=== PATIENT | female | born 1970 | race Caucasian/White ===

== ENCOUNTER 2025-03-04 20:43 | Inpatient (IN) | payer MEDICAID ==
[~2025-03-04] VITALS: Ht 152.4 cm; Wt 59.0 kg
[2025-03-04 21:28] LABS: BASOPHILS % 0.3 % (0.0-2.0); EOSINOPHILS % 0.5 % (0.0-5.0); HEMATOCRIT. 41.4 % (36.0-48.0); HEMOGLOBIN. 13.4 g/dL (12.0-16.0); LYMPHOCYTES % 18.5 % (20.0-50.0); MEAN CORPUSCULAR HEMOGLOBIN 26.5 pg (28.0-32.0); MEAN CORPUSCULAR HGB CONC 32.5 g/dL (31.0-37.0); MEAN CORPUSCULAR VOLUME 81.6 fL (81.0-99.0); MEAN PLATELET VOLUME 8.3 fl (7.4-10.4); MONOCYTES % 4.6 % (2.0-8.0); NEUTROPHILS % 76.1 % (40.0-76.0); PLATELET 333 x1000/uL (130-400); RED BLOOD CELL COUNT 5.07 mill/uL (4.2-5.4); RED CELL DISTRIBUTION WIDTH 14.5 % (11.6-14.6); WHITE BLOOD COUNT 19.6 x1000/uL (4.5-11.0)
[2025-03-04 21:35] LABS: CHLORIDE 98 mEq/L (98-107); POTASSIUM 4.1 mEq/L (3.5-5.1); SODIUM 136 mEq/L (136-145)
[2025-03-04 21:36] LABS: CARBON DIOXIDE 24 mEq/L (21-32); PROTHROMBIN TIME 10.6 sec (9.6-11.0)
[2025-03-04 21:37] LABS: CALCIUM 10.7 mg/dL (8.7-10.4)
[2025-03-04 21:42] LABS: CREATININE 0.8 mg/dL (0.6-1.0); ETHANOL BLOOD < 10 mg/dL (<10); GLUCOSE 264 mg/dL (70-105); UREA NITROGEN BLOOD 19 mg/dL (9-23)
[2025-03-04 21:44] LABS: ALANINE AMINOTRANSFERASE 124 IU/L (10-49); ALBUMIN 5.1 g/dL (3.2-4.8); ASPARTATE AMINOTRANSFERASE 59 IU/L (<34); BILIRUBIN DIRECT 0.1 mg/dL (<=3.0); BILIRUBIN TOTAL 0.3 mg/dL (0.1-1.0); PROTEIN TOTAL 7.7 g/dL (6.0-8.3)
[2025-03-04] MEDS: SODIUM CHLORIDE 0.9% 1,000 ML IV ONE (22:06)
[2025-03-04] MEDS: ONDANSETRON HCL 4MG/2ML INJ IV STA (22:06)
[2025-03-04] MEDS: MORPHINE SULFATE 4 MG/ML INJ (FOR IV/IM USE) IV ONE (22:07)
[2025-03-05] VITALS (7 sets, daily range): BP systolic 114–145; BP diastolic 68–89; PULSE 65–84; RESP 17–20; TEMP 36.1–36.9; O2SAT 94–100
[2025-03-05] MEDS: CEFTRIAXONE 1GM/50ML 50 ML IV ONE (00:05)
[2025-03-05] MEDS ORDERED: HYDRALAZINE 20MG/ML VIAL IV PRN (00:45)
[2025-03-05] MEDS ORDERED: DEXTROSE 50% WATER 50ML SYRINGE IV PRN (00:45)
[2025-03-05] MEDS ORDERED: ONDANSETRON HCL 4MG/2ML INJ IV PRN (00:45)
[2025-03-05] MEDS ORDERED: NALOXONE HCL 0.4MG/ML VIAL IV PRN (01:00)
[2025-03-05] MEDS: BLOOD SUGAR DIAGNOSTIC STRIP TEST SCH (01:45)
[2025-03-05] MEDS: SODIUM CHLORIDE 0.9% 1,000 ML IV SCH (02:00)
[2025-03-05 02:52] LABS: CLARITY URINE CLEAR (CLEAR); COLOR URINE YELLOW (YELLOW); GLUCOSE URINE TRACE (NEGATIVE); KETONES URINE NEGATIVE (NEGATIVE); LEUKOCYTE ESTERASE URINE NEGATIVE (NEGATIVE); NITRITE URINE NEGATIVE (NEGATIVE); OCCULT BLOOD URINE NEGATIVE (NEGATIVE); PROTEIN URINE NEGATIVE (NEGATIVE); SPECIFIC GRAVITY URINE 1.028 (1.005-1.030); UROBILINOGEN URINE 0.2 E.U./dL (0.2-1.0)
[2025-03-05 02:59] LABS: *AMPHETAMINES SCREEN URINE NEGATIVE (NEGATIVE); *BARBITURATES SCREEN URINE NEGATIVE (NEGATIVE); *BENZODIAZEPINES SCREEN URINE NEGATIVE (NEGATIVE); *COCAINE SCREEN URINE NEGATIVE (NEGATIVE)
[2025-03-05 03:00] LABS: CANNABINOID URINE SCREEN NEGATIVE (NEGATIVE); METHADONE URINE SCREEN NEGATIVE (NEGATIVE); OPIATES URINE SCREEN PRESUMPTIVE POSITIVE (NEGATIVE); PHENCYCLIDINE URINE SCREEN NEGATIVE (NEGATIVE)
[2025-03-05 03:04] LABS: ECSTASY MDMA SCREEN URINE NEGATIVE (NEGATIVE)
[2025-03-05 03:31] LABS: BACTERIA URINE TRACE; RBC URINE 0-2 /hpf (0-2); SQUAMOUS EPITHELIAL CELL URINE 1+ /lpf (RARE/1+); WBC URINE NONE SEEN /hpf (0-2)
[2025-03-05] MEDS: MORPHINE SULFATE 4 MG/ML INJ (FOR IV/IM USE) IV PRN ×2 (04:08→23:31)
[2025-03-05] MEDS: PIPERACILLIN/TAZO 3.375G/50ML 50 ML IV SCH (05:51)
[2025-03-05] MEDS: INSULIN LISPRO 100 UNITS/ML SUBCUT SCH (06:18)
[2025-03-05] MEDS ORDERED: IOHEXOL-300 100 ML BOTTLE ONE (06:31)
[2025-03-05] MEDS: PANTOPRAZOLE SODIUM 40 MG/VIAL IV SCH (10:30)
[2025-03-05] MEDS ORDERED: ROSU40TA MT (15:55)
[2025-03-05] MEDS ORDERED: BUPR-710 PO (15:55)
[2025-03-05] MEDS ORDERED: PROP20TA7 PO (15:55)
[2025-03-05] MEDS ORDERED: DOCU-138 PO (15:55)
[2025-03-05] MEDS ORDERED: SUCR1TAB PO (15:55)
[2025-03-05] MEDS ORDERED: CYCL5TAB3 PO (15:55)
[2025-03-05] MEDS ORDERED: TRAZ-252 PO (15:55)
[2025-03-05] MEDS ORDERED: CITA40TA69 PO (15:55)
[2025-03-05] MEDS ORDERED: METF-1149 PO (15:55)
[2025-03-05] MEDS ORDERED: FLUT15.844 BOTHNSTRLS (15:55)
[2025-03-05] MEDS ORDERED: OMEP20CA14 PO (15:55)
[2025-03-06] VITALS: BP 135/78; PULSE 64; RESP 18; TEMP 36.6; O2SAT 97
[2025-03-06] MEDS: DIPHENHYDRAMINE 50MG/ML VIAL IV PRN (02:47)
[2025-03-06 04:00] VITALS: BP 135/80; PULSE 63; RESP 18; TEMP 36.4; O2SAT 93
[2025-03-06 12:36] VITALS: BP 134/81; PULSE 68; RESP 20; TEMP 36.4; O2SAT 95
[2025-03-06] MEDS: PIPERACILLIN/TAZO 3.375G/50ML 50 ML IV SCH (14:54)
[2025-03-06] MEDS: KETOROLAC 30MG/ML VIAL IV PRN (14:55)
[2025-03-06 16:58] VITALS: BP 137/78; PULSE 70; RESP 20; TEMP 36.4; O2SAT 98
[2025-03-06 17:31] LABS: BASOPHILS % 0.4 % (0.0-2.0); EOSINOPHILS % 0.5 % (0.0-5.0); HEMATOCRIT. 37.1 % (36.0-48.0); HEMOGLOBIN. 12.2 g/dL (12.0-16.0); LYMPHOCYTES % 35.5 % (20.0-50.0); MEAN CORPUSCULAR HEMOGLOBIN 26.8 pg (28.0-32.0); MEAN CORPUSCULAR HGB CONC 32.8 g/dL (31.0-37.0); MEAN CORPUSCULAR VOLUME 81.6 fL (81.0-99.0); MONOCYTES % 5.2 % (2.0-8.0); NEUTROPHILS % 58.4 % (40.0-76.0); PLATELET 270 x1000/uL (130-400); RED BLOOD CELL COUNT 4.55 mill/uL (4.2-5.4); RED CELL DISTRIBUTION WIDTH 14.1 % (11.6-14.6); WHITE BLOOD COUNT 7.9 x1000/uL (4.5-11.0)
[2025-03-06 17:47] LABS: CHLORIDE 103 mEq/L (98-107); POTASSIUM 3.8 mEq/L (3.5-5.1); SODIUM 138 mEq/L (136-145)
[2025-03-06 17:48] LABS: CARBON DIOXIDE 26 mEq/L (21-32)
[2025-03-06 17:49] LABS: CALCIUM 9.4 mg/dL (8.7-10.4)
[2025-03-06 17:53] LABS: CREATININE 0.6 mg/dL (0.6-1.0); GLUCOSE 176 mg/dL (70-105)
[2025-03-06 17:54] LABS: UREA NITROGEN BLOOD 7 mg/dL (9-23)
[2025-03-06 20:00] VITALS: BP 143/83; PULSE 67; RESP 18; TEMP 36; O2SAT 98
[2025-03-07] VITALS: BP 132/74; PULSE 89; RESP 18; TEMP 35.9; O2SAT 96
[2025-03-07] MEDS: TRAZODONE HCL 50MG TABLET PO NR (00:25)
[2025-03-07 04:00] VITALS: BP 131/71; PULSE 90; RESP 18; TEMP 36; O2SAT 98
[2025-03-07 08:00] VITALS: BP 120/78; PULSE 64; RESP 16; TEMP 36.6; O2SAT 96
[2025-03-07] MEDS: FAMOTIDINE 20MG/2ML VIAL IV SCH (08:41)
[2025-03-07 12:00] VITALS: BP 144/81; PULSE 68; RESP 17; TEMP 36.3; O2SAT 98
[2025-03-07 16:00] VITALS: BP 137/83; PULSE 71; RESP 17; TEMP 36.7; O2SAT 98
[2025-03-07] MEDS ORDERED: SODIUM CHLORIDE 0.9% 1,000 ML IV SCH (16:21)
[2025-03-07 19:57] VITALS: BP 139/84; PULSE 74; TEMP 99.1; O2SAT 95
[2025-03-07] MEDS ORDERED: TRAZ-251 PO ×2 (20:29→20:41)
[2025-03-07] MEDS ORDERED: TRAZODONE HCL 50MG TABLET PO SCH (21:00)
== END 2025-03-07 21:08 | disposition short-term general hospital (02) | DRG 247 ==
LOC: ER 20:43 → 7EST 03-05 → ENRESERV 03-05 00:43
PROVIDERS: ADMIT Internal Medicine; ATTEND Internal Medicine
DX: K56.600 Partial intestinal obstruction, unspecified as to cause (principal); R65.10 Systemic inflammatory response syndrome (SIRS) of non-infectious origin without acute organ dysfunction; E78.00 Pure hypercholesterolemia, unspecified; E11.9 Type 2 diabetes mellitus without complications; Z98.84 Bariatric surgery status; Z88.8 Allergy status to other drugs, medicaments and biological substances
CPT/HCPCS: 36415; 71045; 74018; 74177; 76830; 76856; 80048; 80076; 80305; 80320; 81003; 82962; 83036; 85025; 93005; 93970; 96361; 96374; 96375; 99291; A4606; J0696; J1200; J1308; J1815; J1885; J2270; J2405; J2470; J2543; J7030; Q9967; G0480